=== PATIENT | female | born 1940 | race Caucasian/White ===

== ENCOUNTER → 2017-08-01 | Outpatient (CLI) | payer OTHER ==
[~2017-08-01] MED LIST: AMLO5 PO; ASPI81CH PO; METO50ER PO; QUIN10 PO; ROSU10TA PO; Refresh Liquige15 ML; ZOLP5 PO
== END | disposition home or self-care (01) ==
LOC: PLD 07:39 → LAB SHORT 07:39
DX: D22.5 Melanocytic nevi of trunk (principal)
CPT/HCPCS: 88305

== ENCOUNTER → 2021-11-15 | Outpatient (CLI) | payer OTHER ==
[2021-11-16 11:04] LABS: Stool Occult Bld Immuno 1 Negative (NEGATIVE); Stool Occult Bld Immuno 2 Negative (NEGATIVE)
== END | disposition home or self-care (01) ==
LOC: LAB SHORT 17:07 → LAB 17:07
PROVIDERS: Internal Medicine Gastroenterology
DX: Z12.11 Encounter for screening for malignant neoplasm of colon (principal)
CPT/HCPCS: 82274